=== PATIENT | female | born 1975 | race Caucasian/White ===

== ENCOUNTER 2018-11-19 20:31 | Emergency (ER) | payer SELFPAY ==
[~2018-11-19] VITALS: Ht 152.4 cm; Wt 76.4 kg
[2018-11-19 20:40] VITALS: Ht 152.4 cm; Wt 76.4 kg
--- NOTE | 2018-11-20 00:21 | ERD ---
ER Documentation Chief Complaint Chief Complaint BIB FAMILY W/ C/O EPIGASTRIC PAIN AND PANICK ATTACK S/P INGESTING OINTMENT HPI The patient is a 44-year-old female, presenting to the ER because of epigastric discomfort after she accidentally ingested 1/2 tsp Capsaicin around 8:30 PM, denies suicidal/homicidal ideation. She feels very anxious and hyperventilating, denies vomiting, dysuria, diarrhea. She does not smoke, drinks socially Past medical history: Hypertension Past surgical history: None ROS All systems reviewed and are negative except as per history of present illness. Medications Home Meds Active Scripts Pantoprazole* (Protonix*) 40 Mg Tablet., 40 MG PO DAILY, #20 TAB Prov:FRANCK DYSON MD 11/20/18 Allergies Allergies: Coded Allergies: No Known Allergy (Unverified , 11/19/18) PMhx/Soc Medical and Surgical Hx: pt denies Medical Hx, pt denies Surgical Hx History of Surgery: No Anesthesia Reaction: No Hx Neurological Disorder: No Hx Respiratory Disorders: No Hx Cardiac Disorders: No Hx Psychiatric Problems: No Hx Miscellaneous Medical Probl: No Hx Alcohol Use: No Hx Substance Use: No Hx Tobacco Use: No Smoking Status: Never smoker Physical Exam Vitals Vital Signs Date Temp Pulse Resp B/P (MAP) Pulse Ox O2 O2 Flow FiO2 Time Delivery Rate 11/20/18 98.2 65 16 117/63 99 Room Air 02:50 (81) 11/19/18 97.0 102 17 168/96 100 20:40 (120) Physical Exam Const: No acute distress. Head: Atraumatic. Eyes: Normal Conjunctiva. ENT: Normal External Ears, Nose and Mouth. Neck: Full range of motion. No meningismus. Resp: Clear to auscultation bilaterally. Cardio: Regular rate and rhythm. Abd: Soft, non distended, normal bowel sounds, non tender. Skin: No petechiae or rashes. Back: No midline or flank tenderness. Ext: No cyanosis, or edema. Neur: Awake and alert. No focal deficit Psych: Anxious Results 24 hrs Laboratory Tests Test 11/19/18 23:58 11/20/18 00:00 Bedside Urine pH (LAB) 5.5 Bedside Urine Protein (LAB) Negative Bedside Urine Glucose (UA) Negative Bedside Urine Ketones (LAB) Negative Bedside Urine Blood Trace-intact Bedside Urine Nitrite (LAB) Negative Bedside Urine Leukocyte Esterase (L Negative POC Beta HCG, Qualitative NEGATIVE Current Medications Medications Dose Sig/Meera Start Time Status Last (Trade) Ordered Route PRN Stop Time Admin Dose Reason Admin Sodium 1,000 ml @ Q1H STAT 11/20/18 DC 11/20/18 Chloride 1,000 mls/hr IV 00:49 01:11 11/20/18 01:48 40 mg ONCE ONCE 11/20/18 DC 11/20/18 Pantoprazole IV 01:00 01:10 (Protonix 11/20/18 01:01 Iv) 40 ml ONCE ONCE 11/20/18 DC 11/20/18 Miscellaneous PO 01:00 01:10 Medication 11/20/18 01:01 (Gi Cocktail (2)) Procedures/MDM EKG: Read by emergency physician Rate/Rhythm: Normal Sinus Rhythm 82 beats/min QRS, ST, T-waves: No ST elevation, no T inversion, low voltage, nonspecific T abnormality Impression: Abnormal EKG Consultation: We discussed the patient with poison control who does not recommend any treatment MEDICAL MAKING DECISION: The patient is a 44-year-old female, presenting with acute nontoxic ingestion, acute anxiety attack. She was treated with 1 L normal saline, Protonix 40 mg IV and GI cocktail with good response, as above outpatient follow-up The differential diagnoses considered include but are not limited to cholelithiasis, cholecystitis, choledocholithiasis, cholangitis, pancreatitis, hepatitis, gastritis, peptic ulcer disease, gastric ulcer, appendicitis, cystitis, diverticulitis, partial small bowel obstruction. Departure Diagnosis: Primary Impression: Ingestion of nontoxic substance Condition: Good Comments She was discharged with Protonix I discussed the findings with the patient. I advised the patient to follow-up with the primary physician in about 2-3 days, sooner if needed and return if any concern. Disclaimer: Inadvertent spelling and grammatical errors are likely due to EHR/dictation software use and do not reflect on the overall quality of patient care. Also, please note that the electronic time recorded on this note does not necessarily reflect the actual time of the patient encounter. FRANCK DYSON MD Nov 20, 2018 00:21
[2018-11-20] MEDS ORDERED: SOD CHLORIDE 0.9% 1,000 ML IV STA (00:49)
[2018-11-20] MEDS ORDERED: PANTOPRAZOLE 40 MG INJ IV ONE (01:00)
[2018-11-20] MEDS ORDERED: LIDOCAINE/MYLANTA 40 ML BTL PO ONE (01:00)
[2018-11-20] MEDS ORDERED: PANT40TA3 PO (02:22)
[2018-11-20 02:50] VITALS: BP 117/63; PULSE 65; RESP 16
== END 2018-11-20 03:15 | disposition home or self-care (01) ==
LOC: EDBD 20:31 → E/R 20:31
DX: T50.901A Poisoning by unspecified drugs, medicaments and biological substances, accidental (unintentional), initial encounter (principal); I10 Essential (primary) hypertension
CPT/HCPCS: 81003; 81025; 93005; 96361; 96374; 99284; C9113; J7030